=== PATIENT | male | born 1950 | race Caucasian/White ===

== ENCOUNTER 2018-04-15 10:54 | Emergency (ER) | payer MEDICARE, BC ==
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
--- NOTE | 2018-04-15 12:01 | RADIOLOGY REPORT (SQ) ---
EXAM DESCRIPTION: CT HEAD WITHOUT COMPLETED DATE/TIME: 04/15/2018 11:49 am REASON FOR STUDY: concern for cva COMPARISON: None. TECHNIQUE: Axial images acquired through the brain without intravenous contrast. Images reviewed wi th bone, brain and subdural windows. Images stored on PACS. All CT scanners at this facility use dose modulation, iterative reconstruction, and/or weight based d osing when appropriate to reduce radiation dose to as low as reasonably achievable (ALARA). [facility]: Dose Right [facility]: CareDose [facility]: Dose Right [facility]: Teradose 4D [facility]: [employer] RADIATION DOSE: CT Rad equipment meets quality standard of care and radiation dose reduction techniq ues were employed. CTDIvol: 53.2 mGy. DLP: 1070 mGy-cm. mGy. LIMITATIONS: None. FINDINGS: VENTRICLES: Normal size and contour. CEREBRUM: No masses. No hemorrhage. No midline shift. Old lacunar infarct right basal ganglion reg ion. Confluent areas of decreased attenuation within subcortical and periventricular white matter co mpatible with chronic white matter change. CEREBELLUM: No masses. No hemorrhage. No alteration of density. No evidence for acute infarction. EXTRAAXIAL SPACES: No fluid collections. No masses. ORBITS AND GLOBE: No intra- or extraconal masses. Normal contour of globe without masses. CALVARIUM: No fracture. PARANASAL SINUSES: Mucosal thickening within ethmoid and sphenoid sinuses consistent with chronic sin usitis. SOFT TISSUES: No mass or hematoma. OTHER: No other significant finding. IMPRESSION: CHRONIC ETHMOID AND SPHENOID SINUSITIS. CHANGES COMPATIBLE WITH CHRONIC WHITE MATTER CH SILVA AND OLD LACUNAR INFARCT RIGHT BASAL GANGLION REGION. EVIDENCE OF ACUTE STROKE: NO. COMMENT: Quality ID # [id number]: Final reports with documentation of one or more dose reduction techniques (e.g., Automated exposure control, adjustment of the mA and/or kV according to patient size, use of iterative reconstruction technique) TECHNICAL DOCUMENTATION: JOB ID: [id number] 2010 [employer]- All Rights Reserved Reading location - IP/workstation name: [email or web address]
[2018-04-15 12:15] LABS: ABSOLUTE BASOPHILS # (AUTO) 0.1 10^3/uL (0.0-0.2); ABSOLUTE EOSINOPHILS # (AUTO) 0.1 10^3/uL (0.0-0.6); ABSOLUTE LYMPHOCYTES (AUTO) 2.6 10^3/uL (0.5-4.7); ABSOLUTE MONOCYTES (AUTO) 0.8 10^3/uL (0.1-1.4); ABSOLUTE NEUT (AUTO) 5.3 10^3/uL (1.7-8.2); BASOPHILS % (AUTO) 1.1 % (0-2); EOSINOPHILS % (AUTO) 1.5 % (0-6); HEMATOCRIT 44.2 % (37.9-51.0); HEMOGLOBIN 15.7 g/dL (13.5-17.0); LYMPHOCYTES % (AUTO) 28.9 % (13-45); MEAN CORPUSCULAR HEMOGLOBIN 31.4 pg (27.0-33.4); MEAN CORPUSCULAR HGB CONC 35.5 g/dL (32.0-36.0); MEAN CORPUSCULAR VOLUME 89 fl (80-97); MONOCYTES % (AUTO) 9.3 % (3-13); PLATELET COUNT 214 10^3/uL (150-450); RED BLOOD COUNT 4.99 10^6/uL (4.35-5.55); RED CELL DISTRIBUTION WIDTH 13.5 % (11.5-14.0); SEGMENTED NEUTROPHILS % (AUTO) 59.2 % (42-78); TOTAL CELLS COUNTED % (AUTO) 100 %; WHITE BLOOD COUNT 8.9 10^3/uL (4.0-10.5)
--- NOTE | 2018-04-15 12:15 | RADIOLOGY REPORT (SQ) ---
EXAM DESCRIPTION: CHEST SINGLE VIEW COMPLETED DATE/TIME: 04/15/2018 11:50 am REASON FOR STUDY: concern for cva COMPARISON: None. EXAM PARAMETERS: NUMBER OF VIEWS: One view. TECHNIQUE: Single frontal radiographic view of the chest acquired. RADIATION DOSE: NA LIMITATIONS: None. FINDINGS: LUNGS AND PLEURA: No acute infiltrates or effusions. MEDIASTINUM AND HILAR STRUCTURES: No masses. Contour normal. HEART AND VASCULAR STRUCTURES: The heart is normal with atherosclerotic uncoiling and dilatation of t he thoracic aorta BONES: No acute findings. HARDWARE: None in the chest. OTHER: No other significant finding. IMPRESSION: NO ACUTE DISEASE. TECHNICAL DOCUMENTATION: JOB ID: [id number] 2010 [email or web address]- All Rights Reserved Reading location - IP/workstation name: [email or web address]
[2018-04-15 12:20] LABS: INTERNATIONAL RATION (INR) 1.41
[2018-04-15 12:21] LABS: PARTIAL THROMBOPLASTIN TIME 42.2 SEC (23.5-35.8)
[2018-04-15 12:24] LABS: APPEARANCE,URINE CLEAR; BILIRUBIN,URINE NEGATIVE (NEGATIVE); COLOR,URINE STRAW; GLUCOSE, URINE NEGATIVE (NEGATIVE); KETONES,URINE NEGATIVE (NEGATIVE); LEUKOCYTE ESTERASE,URINE SMALL (NEGATIVE); NITRITE,URINE NEGATIVE (NEGATIVE); PROTEIN,URINE NEGATIVE (NEGATIVE); URINE SPECIFIC GRAVITY 1.003; UROBILINOGEN,URINE NEGATIVE mg/dL (<2.0)
[2018-04-15 12:34] LABS: VENOUS BLOOD BASE EXCESS 2.9 mmol/L; VENOUS BLOOD HCO3 28.7 mmol/L (20-32); VENOUS BLOOD PCO2 48.3 mmHg (35-63); VENOUS BLOOD PH 7.39 (7.30-7.42)
[2018-04-15 12:38] LABS: ALANINE AMINOTRANSFERASE 21 U/L (21-72); ALKALINE PHOSPHATASE 57 U/L (38-126); ANION GAP 8 (5-19); ASPARTATE AMINO TRANSFERASE 15 U/L (17-59); BILIRUBIN,DIRECT 0.2 mg/dL (0.0-0.4); BILIRUBIN,TOTAL 0.8 mg/dL (0.2-1.3); BLOOD UREA NITROGEN 16 mg/dL (7-20); CALCIUM 9.3 mg/dL (8.4-10.2); CARBON DIOXIDE 31 mmol/L (22-30); CHLORIDE 102 mmol/L (98-107); CREATINE KINASE 35 U/L (55-170); GLUCOSE 185 mg/dL (75-110); POTASSIUM 3.9 mmol/L (3.6-5.0); SODIUM 141.3 mmol/L (137-145); TOTAL PROTEIN 7.2 g/dL (6.3-8.2)
--- NOTE | 2018-04-15 12:39 | EKG REPORT ---
SEVERITY:- ABNORMAL ECG - SINUS RHYTHM LEFT ANTERIOR FASCICULAR BLOCK : Confirmed by: Frida eSthi MD 15-Apr-2018 12:38:42
[2018-04-15 12:50] LABS: CREATINE KINASE MB 0.34 ng/mL (<4.55); TROPONIN I < 0.012 ng/mL
[2018-04-15 14:21] VITALS: BP 143/90
== END 2018-04-15 14:21 | disposition home or self-care (01) ==
LOC: ER 10:54
DX: J32.9 Chronic sinusitis, unspecified (principal); R26.9 Unspecified abnormalities of gait and mobility; G56.02 Carpal tunnel syndrome, left upper limb; R20.0 Anesthesia of skin; E11.9 Type 2 diabetes mellitus without complications; I10 Essential (primary) hypertension; E78.5 Hyperlipidemia, unspecified; F17.210 Nicotine dependence, cigarettes, uncomplicated
CPT/HCPCS: 36415; 70450; 71045; 80053; 81001; 82550; 82553; 82803; 84484; 85025; 85610; 85730; 93005; 93010; 99285

== ENCOUNTER → 2018-07-13 | Outpatient (CLI) | payer MEDICARE, BC ==
--- NOTE | 2018-07-13 13:19 | RADIOLOGY REPORT (SQ) ---
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 Images stored on PACS. LIMITATIONS: None. FINDINGS: RIGHT CAROTID CCA Velocities: Within normal limits. Right common carotid artery peak systolic velocity 0.95 m/sec ICA Velocities Peak systolic 0.87 m/s. End diastolic 0.14 m/s. Proximal ICA/CCA peak systolic ratio 1.0. Spectra normal. No significant plaque. LEFT CAROTID CCA Velocities: Left common carotid artery peak systolic velocity 1.7 m/sec ICA Velocities Peak systolic 0.67 m/s. End diastolic is 0.19 m/s. Proximal ICA/CCA peak systolic ratio is 0.8. Spectra normal. No significant plaque. VERTEBRAL ARTERIES: Antegrade flow. Normal waveforms. SUBCLAVIAN ARTERIES: Not evaluated OTHER: No other significant finding. IMPRESSION: NO HEMODYNAMICALLY SIGNIFICANT STENOSIS. COMMENT: Quality ID #[id number]: Velocity criteria are extrapolated from the diameter data as defined by t he Society of Radiologists in Ultrasound Consensus Conference. Radiology 2003: 229; 340-346. TECHNICAL DOCUMENTATION: JOB ID: [id number] [employer]- All Rights Reserved Reading location - IP/workstation name: [email or web address]
== END ==
LOC: SP 10:23
PROVIDERS: ATTEND Obstetrics & Gynecology
DX: E78.5 Hyperlipidemia, unspecified (principal); I10 Essential (primary) hypertension; E11.9 Type 2 diabetes mellitus without complications; Z86.73 Personal history of transient ischemic attack (TIA), and cerebral infarction without residual deficits
CPT/HCPCS: 93880

== ENCOUNTER 2018-12-01 09:03 | Emergency (ER) | payer MEDICARE, BC ==
[2018-12-01] MEDS ORDERED: CEFTRIAXONE 1 GM/D5W RTU 1 GM/50 ML RTUPB IV ONE (09:34)
[2018-12-01] MEDS ORDERED: ONDANSETRON HCL INJ/PF 4 MG/2 ML SDV IV ONE (09:35)
[2018-12-01] MEDS ORDERED: MORPHINE SULFATE 10 MG/ML INJ IV ONE ×2 (09:35→13:27)
[2018-12-01 09:39] LABS: HEMATOCRIT 43.3 % (37.9-51.0); HEMOGLOBIN 14.5 g/dL (13.5-17.0); MEAN CORPUSCULAR HEMOGLOBIN 29.9 pg (27.0-33.4); MEAN CORPUSCULAR HGB CONC 33.6 g/dL (32.0-36.0); MEAN CORPUSCULAR VOLUME 89 fl (80-97); PLATELET COUNT 222 10^3/uL (150-450); RED BLOOD COUNT 4.87 10^6/uL (4.35-5.55); RED CELL DISTRIBUTION WIDTH 14.7 % (11.5-14.0); WHITE BLOOD COUNT 12.4 10^3/uL (4.0-10.5)
--- NOTE | 2018-12-01 09:39 | ER Document Report ---
ED GI/ - General Chief Complaint: Possible Kidney Stone Stated Complaint: BACK PAIN,FEVER Time Seen by Provider: 12/01/18 09:14 Primary Care Provider: JIGNESH STEVENS MD [Primary Care Provider] - Follow up as needed Information source: Patient Notes: HPI: Patient is a 68-year-old male with past medical history including diabetes, high blood pressure, early Parkinson's disease, diagnosed with a right-sided large kidney stone around 1 cm in diameter in September in [place]. Patient is followed by the local urologist Dr. Jesus. He has surgery scheduled for December. Patient states he has had some increased right flank pain for the last 3 days with a temperature of 101. Nausea without vomiting. No dysuria. No radiation to the abdomen. No runny nose, congestion, sore throat, cough, headache, neck pain, rash, diarrhea, or other source of infection. ROS: See HPI All other review of systems reviewed and otherwise negative Reviewed vital signs and nursing note as charted by RN. PHYSICAL EXAM: CONSTITUTIONAL: She does appear to be in pain HEAD: Normocephalic; atraumatic EYES: Sclerae non-icteric ENT: Normal nose; no rhinorrhea; moist mucous membranes; pharynx without lesions noted NECK: Supple without meningismus; non-tender; no cervical lymphadenopathy, no masses CARD: Tachy but regular; no murmurs; symmetric distal pulses RESP: Normal chest excursion without splinting or tachypnea; breath sounds clear and equal bilaterally; no wheezes, no rhonchi, no rales ABD/GI: Normal bowel sounds; elevated BMI; soft, non-tender to palpation of all four quadrants of the abdomen; no palpable organomegaly or masses BACK: Right flank pain with no swelling or erythema. No midline ttp, swelling or erythema EXT: Normal ROM in all joints; non-tender to palpation; no edema SKIN: No acute lesions noted NEURO: CN 2-12 intact; 5/5 bilateral upper and lower extremity strength with sensation intact to light touch PSYCH: The patient's mood and manner are appropriate. Grooming and personal hygiene are appropriate. TRAVEL OUTSIDE OF THE [place] IN LAST 30 DAYS: No - Related Data Allergies/Adverse Reactions: aspirin Allergy (Verified 04/15/18 10:55) Past Medical History - Social History Smoking Status: Unknown if Ever Smoked Family History: Reviewed & Not Pertinent - Past Medical History Cardiac Medical History: Reports: Hx Hypertension Endocrine Medical History: Reports: Hx Diabetes Mellitus Type 2 Renal/ Medical History: Denies: Hx Peritoneal Dialysis Past Surgical History: Reports: Hx Appendectomy Physical Exam - Vital signs Vitals: Temp Pulse Resp BP Pulse Ox 99.7 F 123 H 24 H 148/86 H 95 12/01/18 09:17 12/01/18 09:17 12/01/18 09:17 12/01/18 09:17 12/01/18 09:17 Course - Re-evaluation Re-evalutation: 12/01/18 09:38 Given the above history and physical examination, we will obtain a renal colic CT scan, basic labs, blood cultures, lactic acid level, provide pain medications, fluids, and broad-spectrum coverage for possible infected kidney stone with Rocephin. Concern about sepsis. I will provide ideal body weight 2 L of fluid initially per septic protocol. 12/01/18 11:13 White blood cell count, CT scan renal colic protocol, and urine analysis as recorded. Rocephin and fluids have been provided. Normal lactic acid. I have called the transfer center with the patient's urologist Dr. Jesus currently works. I do believe transfer and extraction are indicated. 12/01/18 12:09 I did speak to Dr. Jesus who is very pleasant and did view the images himself. He does believe that the patient most likely needs a percutaneous drain. He will see if the hospitalist is able and willing to admit this patient. Transfer has been initiated. - Vital Signs Vital signs: Temp Pulse Resp BP Pulse Ox 98.2 F 123 H 22 H 137/87 H 95 12/01/18 15:31 12/01/18 09:17 12/01/18 15:31 12/01/18 15:31 12/01/18 15:31 - Laboratory Result Diagrams: 12/01/18 09:20 12/01/18 09:20 Laboratory results interpreted by me: 12/01/18 12/01/18 12/01/18 09:20 09:20 09:27 WBC 12.4 H RDW 14.7 H Seg Neuts % (Manual) 86 H Band Neutrophils % 2 L Lymphocytes % (Manual) 6 L Abs Neuts (Manual) 10.9 H PT 17.5 H Carbon Dioxide 20 L BUN 22 H Creatinine 1.33 H Est GFR (MDRD) Non-Af 53 L Glucose 251 H Urine Protein Urine Glucose (UA) Urine Ketones Urine Blood Urine Urobilinogen Ur Leukocyte Esterase Urine Ascorbic Acid 12/01/18 10:45 WBC RDW Seg Neuts % (Manual) Band Neutrophils % Lymphocytes % (Manual) Abs Neuts (Manual) PT Carbon Dioxide BUN Creatinine Est GFR (MDRD) Non-Af Glucose Urine Protein 100 H Urine Glucose (UA) 150 H Urine Ketones TRACE H Urine Blood SMALL H Urine Urobilinogen 2.0 H Ur Leukocyte Esterase SMALL H Urine Ascorbic Acid 40 H Critical Care Note - Critical Care Note Total time excluding time spent on procedures (mins): 35 Discharge - Discharge Clinical Impression: Infection, kidney, Kidney stone on right side Condition: Stable Disposition: [facility] Referrals: JIGNESH STEVESN MD [Primary Care Provider] - Follow up as needed
[2018-12-01] MEDS: NORMAL SALINE 1000 ML 1,000 ML IV ONE ×2 (09:45→12:05)
[2018-12-01 09:48] LABS: ANION GAP 12 (5-19); BLOOD UREA NITROGEN 22 mg/dL (7-20); CALCIUM 8.7 mg/dL (8.4-10.2); CARBON DIOXIDE 20 mmol/L (22-30); CHLORIDE 106 mmol/L (98-107); GLUCOSE 251 mg/dL (75-110); POTASSIUM 3.9 mmol/L (3.6-5.0)
[2018-12-01 09:50] LABS: INTERNATIONAL RATION (INR) 1.43; PROTHROMBIN TIME 17.5 SEC (11.4-15.4)
[2018-12-01 09:51] LABS: PARTIAL THROMBOPLASTIN TIME 35.5 SEC (23.5-35.8)
[2018-12-01 10:01] LABS: ABSOLUTE LYMPHOCYTES# (MANUAL) 0.7 10^3/uL (0.5-4.7); ABSOLUTE MONOCYTES # (MANUAL) 0.6 10^3/uL (0.1-1.4); BAND NEUTROPHILS % (MANUAL) 2 % (3-5); BASOPHILS % (MANUAL) 0 % (0-2); EOSINOPHILS % (MANUAL) 1 % (0-6); LYMPHOCYTES % (MANUAL) 6 % (13-45); MONOCYTES % (MANUAL) 5 % (3-13); SEGMENTED NEUTROPHILS % (MAN) 86 % (42-78); TOTAL CELLS COUNTED 100
[2018-12-01 10:02] LABS: ANISOCYTOSIS SLIGHT; PLATELET COMMENT ADEQUATE; TEAR DROP CELLS SLIGHT
--- NOTE | 2018-12-01 10:56 | RADIOLOGY REPORT (SQ) ---
EXAM DESCRIPTION: CT ABD/PELVIS NO ORAL OR IV COMPLETED DATE/TIME: 12/01/2018 10:29 am REASON FOR STUDY: 20; right flank pain; renal colic protocol; large COMPARISON: None. TECHNIQUE: CT scan of the abdomen and pelvis performed without intravenous or oral contrast. Images reviewed with lung, soft tissue, and bone windows. Reconstructed coronal and sagittal MPR images revi ewed. All images stored on PACS. All CT scanners at this facility use dose modulation, iterative reconstruction, and/or weight based d osing when appropriate to reduce radiation dose to as low as reasonably achievable (ALARA). [facility]: Dose Right [facility]: CareDose [facility]: Dose Right [facility]: Teradose 4D [facility]: Smart Baxano RADIATION DOSE: CT Rad equipment meets quality standard of care and radiation dose reduction techniq ues were employed. CTDIvol: 23.3 mGy. DLP: 1339 mGy-cm.mGy. LIMITATIONS: None. FINDINGS: LOWER CHEST: No significant findings. No nodules or infiltrates. NON-CONTRASTED LIVER, SPLEEN, ADRENALS: Evaluation limited by lack of IV contrast. No identified sign ificant masses. PANCREAS: No masses. No peripancreatic inflammatory changes. GALLBLADDER: No identified stones by CT criteria. No inflammatory changes to suggest cholecystitis. RIGHT KIDNEY AND URETER: No suspicious masses. Assessment limited by lack of IV contrast. Numerous right-sided renal calculi with a 16.1 mm stone in the right renal pelvis. There is perinephric stran ding. Hounsfield units measure 327. No hydronephrosis or hydroureter. LEFT KIDNEY AND URETER: No suspicious masses. Assessment limited by lack of IV contrast. Nonobstruc ting left renal calculi. No hydronephrosis or hydroureter. Mild left perinephric stranding. AORTA AND RETROPERITONEUM: Small periaortic nodes. BOWEL AND PERITONEAL CAVITY: No obvious masses or inflammatory changes. No free fluid. Postsurgical changes in the epigastric region. APPENDIX: Surgically absent. PELVIS, BLADDER, AND ABDOMINAL WALL:Umbilical hernia containing omental fat and small bowel. No obst ruction. BONES: No significant findings. OTHER: No other significant finding. IMPRESSION: 1. Numerous bilateral renal calculi 0 with a 16.1 mm right renal pelvic and proximal ure teral stone. No current hydronephrosis but there is perinephric stranding. Hounsfield units measure 327. The other stones are nonobstructing. 2. Umbilical hernia containing omental fat and small bowel. No obstruction. COMMENT: Quality ID # 436: Final reports with documentation of one or more dose reduction techniques (e.g., Automated exposure control, adjustment of the mA and/or kV according to patient size, use of iterative reconstruction technique) TECHNICAL DOCUMENTATION: JOB ID: [id number] [employer]- All Rights Reserved Reading location - IP/workstation name: [email or web address]
[2018-12-01 11:06] LABS: APPEARANCE,URINE SLIGHTLY-CLOUDY; BILIRUBIN,URINE NEGATIVE (NEGATIVE); COLOR,URINE YELLOW; GLUCOSE, URINE 150 mg/dL (NEGATIVE); KETONES,URINE TRACE mg/dL (NEGATIVE); LEUKOCYTE ESTERASE,URINE SMALL (NEGATIVE); NITRITE,URINE NEGATIVE (NEGATIVE); PROTEIN,URINE 100 mg/dL (NEGATIVE); URINE SPECIFIC GRAVITY 1.026
[2018-12-01] MEDS ORDERED: NORMAL SALINE 1000 ML 2,000 ML IV PRN (11:59)
[2018-12-01 16:21] VITALS: BP 137/87
== END 2018-12-01 15:40 | disposition short-term general hospital (02) ==
LOC: ER 09:03
DX: N20.0 Calculus of kidney (principal); R10.9 Unspecified abdominal pain; R50.9 Fever, unspecified; R11.0 Nausea; R00.0 Tachycardia, unspecified; E11.9 Type 2 diabetes mellitus without complications; I10 Essential (primary) hypertension; G20 Parkinson's disease
CPT/HCPCS: 96376; 99291; 96361; 96375; 96365; 36415; 87040; 87086; 83605; 85025; 85610; 85730; 87077; 87088; 80048; 81001; 87186; 74176; J2270; J2405; J7030; J0696

== ENCOUNTER 2019-01-11 09:14 | Day surgery (SDC) | payer MEDICARE, BC ==
[~2019-01-11 09:14] MED LIST: CHONDR SU A NA/HYALUR INTRAOC KIT (SURGICARE) ONE; DORZOLAMIDE HCL 2%/TIMOLOL MALEAT 0.5% OPH SOLN 10 ML OS PRN; EPINEPHRINE INJ/PF 1 MG/1 ML AMPULE ONE; KETOROLAC TROMETHAMINE 0.45% 4 DROP/0.4 ML DROPERETTE OS PRN; LIDOCAINE 1%/PHENYLEPHRINE 1.5% 1 ML VIAL ONE
[2019-01-11] MEDS: TROPICAMIDE 1% OPH SOLN 15 ML OS PRN ×3 (10:40→10:58)
[2019-01-11] MEDS: TETRACAINE HCL 0.5% OPH SOLN 4 ML OS PRN ×3 (10:40→11:00)
[2019-01-11] MEDS: CYCLOPENTOLATE 0.2%/PHENYLEPHRINE 1% OPH SOLN 2 ML OS PRN ×3 (10:41→10:58)
[2019-01-11] MEDS: BESIFLOXACIN HCL 0.6% OPH SUSP 5 ML BOTTLE OS PRN ×3 (10:41→11:28)
[2019-01-11] MEDS ORDERED: MIDAZOLAM 2 MG/2 ML INJ ONE (10:50)
[2019-01-11] MEDS ORDERED: FENTANYL CITRATE INJ/PF 100 MCG/2 ML AMPUL ONE (10:50)
--- NOTE | 2019-01-11 13:57 | Operative Report ---
[facility] Oper[facility] Report: DATE OF SURGERY: [01/11/2019] PREOPERATIVE DIAGNOSIS: Cataract, left eye, Pupil Miosis POSTOPERATIVE DIAGNOSIS: Cataract, left eye, Pupil miosis OPERATION: Complex Cataract extraction with insertion of a toric IOL of the left eye and use of a maluygan ring due to pupil dilation of less than 4mm. Intraocular Lens Model: [18.0 sn6at6 at 172 degrees] reason for surgery was difficulty seeing small print SURGEON: Jan Koch MD ANESTHESIA: Topical PROCEDURE: After obtaining appropriate consent, the patient's left eye was prepped and draped in a sterile fashion as well as the surgeon in the sterile manner and cataract surgery was started. First a paracentesis blade was used to make a side-port incision. Viscoelastic was used to inflate the anterior chamber. Next a 2.4 mm incision was made with a 2.4 mm blade, clear corneal temporarily. A continuous capsulorrhexis was made using a cystotome and Utrata forceps. Following this hydrodissection was carried out to make the lens fully loose and mobile and it was rotated freely. Following this, a divide and conquer technique was used to phacoemulsify the lens.. The remaining cortex was removed with an irrigation/aspiration. Provisc was instilled into the capsular bag to inflate the bag. The intraocular lens was placed. The remaining viscoelastic material was removed with irrigation/aspiration. Following this, the incision was found to be watertight. Prior to making the capsulorhexis a maluygan ring was inserted due to poor pupillary dilation. This was removed at the end of the case. Besivance and Cosopt was instilled into the eye and a protective shield was placed over the eye. The patient was returned to the postoperative recovery in a stable condition.
== END 2019-01-11 12:20 | disposition home or self-care (01) ==
LOC: SC 09:14
PROVIDERS: ATTEND Internal Medicine
DX: H25.813 Combined forms of age-related cataract, bilateral (principal); H57.03 Miosis; E11.9 Type 2 diabetes mellitus without complications; I10 Essential (primary) hypertension; G20 Parkinson's disease; Z86.73 Personal history of transient ischemic attack (TIA), and cerebral infarction without residual deficits; Z87.891 Personal history of nicotine dependence; Z79.899 Other long term (current) drug therapy; Z79.84 Long term (current) use of oral hypoglycemic drugs; Z79.01 Long term (current) use of anticoagulants; Z86.718 Personal history of other venous thrombosis and embolism
CPT/HCPCS: 66982; 82962; 00142; V2787; J2250; J3490 ×2; J0171; J3010; J2370; 142

== ENCOUNTER 2019-01-25 07:27 | Day surgery (SDC) | payer MEDICARE, BC ==
[~2019-01-25 07:27] MED LIST changes: -CHONDR SU A NA/HYALUR INTRAOC KIT (SURGICARE) ONE; -DORZOLAMIDE HCL 2%/TIMOLOL MALEAT 0.5% OPH SOLN 10 ML OS PRN; -EPINEPHRINE INJ/PF 1 MG/1 ML AMPULE ONE; -KETOROLAC TROMETHAMINE 0.45% 4 DROP/0.4 ML DROPERETTE OS PRN; -LIDOCAINE 1%/PHENYLEPHRINE 1.5% 1 ML VIAL ONE; +MIDAZOLAM 2 MG/2 ML INJ ONE
[2019-01-25] MEDS: TROPICAMIDE 1% OPH SOLN 15 ML OD PRN ×3 (08:01→08:25)
[2019-01-25] MEDS: TETRACAINE HCL 0.5% OPH SOLN 4 ML ONE ×4 (08:01→08:31)
[2019-01-25] MEDS: CYCLOPENTOLATE 0.2%/PHENYLEPHRINE 1% OPH SOLN 2 ML OD PRN ×3 (08:02→08:25)
[2019-01-25] MEDS: BESIFLOXACIN HCL 0.6% OPH SUSP 5 ML BOTTLE OD PRN ×4 (08:02→08:57)
[2019-01-25] MEDS ORDERED: ONDANSETRON HCL INJ/PF 4 MG/2 ML SDV ONE (08:15)
[2019-01-25] MEDS ORDERED: FENTANYL CITRATE INJ/PF 100 MCG/2 ML AMPUL ONE (08:15)
[2019-01-25] MEDS: LIDOCAINE 1%/PHENYLEPHRINE 1.5% 1 ML VIAL ONE ×2 (08:44)
[2019-01-25] MEDS: EPINEPHRINE INJ/PF 1 MG/1 ML AMPULE ONE ×2 (08:44)
[2019-01-25] MEDS: CHONDR SU A NA/HYALUR INTRAOC KIT (SURGICARE) ONE ×2 (08:44)
[2019-01-25] MEDS ORDERED: MIDAZOLAM 2 MG/2 ML INJ ONE (08:46)
[2019-01-25] MEDS: DORZOLAMIDE HCL 2%/TIMOLOL MALEAT 0.5% OPH SOLN 10 ML OD PRN ×2 (08:57)
--- NOTE | 2019-01-25 13:55 | Operative Report ---
Operative Report-[facility] Operative Report: DATE OF SURGERY: [01/25/19] PREOPERATIVE DIAGNOSIS: Cataract, right eye POSTOPERATIVE DIAGNOSIS: Cataract, right eye OPERATION: Cataract extraction with insertion of an toric IOL of the right eye. Intraocular Lens Model: [17.5 sn6at5 at 172] reason for surgery was difficulty driving at night secondary to glare from headlights SURGEON: Jan Koch MD ANESTHESIA: Topical PROCEDURE: After obtaining appropriate consent, the patient's right eye was prepped and draped in a sterile fashion as well as the surgeon in the sterile manner and cataract surgery was started. First a paracentesis blade was used to make a side-port incision. Viscoelastic was used to inflate the anterior chamber. Next a 2.4 mm incision was made with a 2.4 mm blade, clear corneal temporarily. A continuous capsulorrhexis was made using a cystotome and Utrata forceps. Following this hydrodissection was carried out to make the criselda fully loose and mobile and it was rotated. Following this, a divide and conquer technique was used to phacoemulsify the criselda. The remaining cortex was removed with an irrigation/aspiration. Provisc was instilled into the capsular bag to inflate the bag. The intraocular lens was placed. The remaining viscoelastic material was removed with irrigation/aspiration. Following this, the incision wa s found to be watertight. Besivance and Cosopt was instilled into the eye and a protective shield was placed over the eye. The patient was returned to the postoperative recovery in a stable condition.
[2019-01-26] MEDS ORDERED: TETRACAINE HCL 0.5% OPH SOLN 0.6 ML DROPERETTE OD PRN (05:00)
== END 2019-01-25 09:46 | disposition home or self-care (01) ==
LOC: SC 07:27
PROVIDERS: ATTEND Internal Medicine
DX: H25.811 Combined forms of age-related cataract, right eye (principal); Z96.1 Presence of intraocular lens; H04.122 Dry eye syndrome of left lacrimal gland; Z79.01 Long term (current) use of anticoagulants; I10 Essential (primary) hypertension; E11.9 Type 2 diabetes mellitus without complications; Z86.73 Personal history of transient ischemic attack (TIA), and cerebral infarction without residual deficits
CPT/HCPCS: 82962; 00142; 66984; V2787; J2250; J3490 ×2; J0171; J3010; J2405; J2370; 142

== ENCOUNTER → 2019-08-15 | Outpatient (CLI) | payer MEDICARE, BC ==
--- NOTE | 2019-08-15 19:53 | EKG REPORT ---
SEVERITY:- ABNORMAL ECG - SINUS RHYTHM LEFT ANTERIOR FASCICULAR BLOCK : Confirmed by: Avtar Duenas MD 15-Aug-2019 19:53:06
== END ==
LOC: OD 14:08
PROVIDERS: ATTEND Obstetrics & Gynecology
DX: I10 Essential (primary) hypertension (principal); I82.409 Acute embolism and thrombosis of unspecified deep veins of unspecified lower extremity; Z79.899 Other long term (current) drug therapy
CPT/HCPCS: 93005; 93010

== ENCOUNTER 2019-09-20 15:58 | Emergency (ER) | payer MEDICARE, BC ==
--- NOTE | 2019-09-20 16:11 | ER Document Report ---
ED Medical Screen (RME) - General Chief Complaint: S/S of Possible Stroke Stated Complaint: POSSIBLE STROKE Time Seen by Provider: 09/20/19 16:03 Primary Care Provider: JIGNESH STEVENS MD [Primary Care Provider] - Follow up as needed Mode of Arrival: Wheelchair Information source: Patient Notes: 68-year-old male presented to ED for complaint of possible stroke symptoms. He has no facial droop. No palmar drift palm, and states he will not answer any questions until his comes back from the car. He is alert and oriented at this time but refuses to answer any questions without his . When came in patient was answering some questions he does have some confusion. He does have a history of a previous stroke and some brain hearing issues. She states t hat this morning he took a walk around the neighborhood barefooted in his underwear and she was able to see this on the dog camera. She states he has been confused for the last 5 days. She states she called Dr. Wyatt and he told her to bring him into the emergency room after going out in the neighborhood with no clothes on. He does have a history of venous insufficiency in the left lower leg. He also has history of DVTs and is a said stroke. states he had abnormal EKG 10 days ago and they are waiting for a cardiology referral. I have greeted and performed a rapid initial assessment of this patient. A comprehensive ED assessment and evaluation of the patient, analysis of test results and completion of medical decision making process will be conducted by an additional ED providers. TRAVEL OUTSIDE OF THE [place] IN LAST 30 DAYS: No - Related Data Allergies/Adverse Reactions: aspirin Allergy (Verified 01/08/19 14:16) SWELLS THROAT Past Medical History - Past Medical History Cardiac Medical History: Reports: Hx Hypertension Denies: Hx Heart Attack Pulmonary Medical History: Denies: Hx Asthma Neurological Medical History: Denies: Hx Cerebrovascular Accident, Hx Seizures Endocrine Medical History: Reports: Hx Diabetes Mellitus Type 2 Renal/ Medical History: Reports: Hx Kidney Stones. Denies: Hx Peritoneal Dialysis GI Medical History: Denies: Hx Hepatitis, Hx Hiatal Hernia, Hx Ulcer Infectious Medical History: Denies: Hx Hepatitis Past Surgical History: Reports: Hx Appendectomy. Denies: Hx Open Heart Surgery, Hx Pacemaker Doctor's Discharge - Discharge Referrals: JIGNESH STEVENS MD [Primary Care Provider] - Follow up as needed
--- NOTE | 2019-09-20 16:41 | RADIOLOGY REPORT (SQ) ---
EXAM DESCRIPTION: CHEST 2 VIEWS IMAGES COMPLETED DATE/TIME: 09/20/2019 4:22 pm REASON FOR STUDY: Pedal edema history of recent abnormal EKG COMPARISON: 04/15/2018 EXAM PARAMETERS: NUMBER OF VIEWS: two views TECHNIQUE: Digital Frontal and Lateral radiographic views of the chest acquired. RADIATION DOSE: NA LIMITATIONS: none FINDINGS: LUNGS AND PLEURA: No opacities, masses or pneumothorax. No pleural effusion. MEDIASTINUM AND HILAR STRUCTURES: No masses or contour abnormalities. HEART AND VASCULAR STRUCTURES: Heart normal size. No evidence for failure. BONES: No acute findings. HARDWARE: None in the chest. OTHER: No other significant finding. IMPRESSION: NO ACUTE RADIOGRAPHIC FINDING IN THE CHEST. TECHNICAL DOCUMENTATION: JOB ID: [id number] 2010 [employer]- All Rights Reserved Reading location - IP/workstation name: [email or web address]
[2019-09-20 16:59] LABS: ABSOLUTE BASOPHILS # (AUTO) 0.2 10^3/uL (0.0-0.2); ABSOLUTE EOSINOPHILS # (AUTO) 0.1 10^3/uL (0.0-0.6); ABSOLUTE LYMPHOCYTES (AUTO) 2.9 10^3/uL (0.5-4.7); ABSOLUTE MONOCYTES (AUTO) 0.7 10^3/uL (0.1-1.4); ABSOLUTE NEUT (AUTO) 7.1 10^3/uL (1.7-8.2); BASOPHILS % (AUTO) 1.5 % (0-2); EOSINOPHILS % (AUTO) 1.2 % (0-6); HEMATOCRIT 34.8 % (37.9-51.0); LYMPHOCYTES % (AUTO) 26.2 % (13-45); MEAN CORPUSCULAR HEMOGLOBIN 23.3 pg (27.0-33.4); MEAN CORPUSCULAR HGB CONC 31.6 g/dL (32.0-36.0); MEAN CORPUSCULAR VOLUME 74 fl (80-97); MONOCYTES % (AUTO) 6.6 % (3-13); PLATELET COUNT 352 10^3/uL (150-450); RED BLOOD COUNT 4.73 10^6/uL (4.35-5.55); RED CELL DISTRIBUTION WIDTH 18.1 % (11.5-14.0); SEGMENTED NEUTROPHILS % (AUTO) 64.5 % (42-78); TOTAL CELLS COUNTED % (AUTO) 100 %
--- NOTE | 2019-09-20 17:03 | RADIOLOGY REPORT (SQ) ---
EXAM DESCRIPTION: CT HEAD WITHOUT IMAGES COMPLETED DATE/TIME: 09/20/2019 4:30 pm REASON FOR STUDY: Altered mental status with previous stroke COMPARISON: 04/15/2018 TECHNIQUE: Axial images acquired through the brain without intravenous contrast. Images reviewed wi th bone, brain and subdural windows. Additional sagittal and coronal reconstructions were generated. Images stored on PACS. All CT scanners at this facility use dose modulation, iterative reconstruction, and/or weight based d osing when appropriate to reduce radiation dose to as low as reasonably achievable (ALARA). [facility]: Dose Right [facility]: CareDose [facility]: Dose Right [facility]: Teradose 4D [facility]: Smart [employer] RADIATION DOSE: CT Rad equipment meets quality standard of care and radiation dose reduction techniq ues were employed. CTDIvol: 48.8 mGy. DLP: 1030 mGy-cm. mGy. LIMITATIONS: None. FINDINGS: VENTRICLES: Normal size and contour. CEREBRUM: No masses. No hemorrhage. No midline shift. Old lacunar infarction in the right basal ga nglia. No evidence for acute infarction. Areas of low density in the white matter most likely chroni c small vessel ischemic changes. CEREBELLUM: No masses. No hemorrhage. No alteration of density. No evidence for acute infarction. EXTRAAXIAL SPACES: No fluid collections. No masses. ORBITS AND GLOBE: No intra- or extraconal masses. Normal contour of globe without masses. CALVARIUM: No fracture. PARANASAL SINUSES: No fluid or mucosal thickening. SOFT TISSUES: No mass or hematoma. OTHER: No other significant finding. IMPRESSION: Chronic microvascular ischemia with an old lacunar infarction on the right. No acute in tracranial imaging finding. EVIDENCE OF ACUTE STROKE: NO. COMMENT: Pertinent positive or negative findings of the imaging study reported as a CRITICAL EXAM soraya CHAMPION NP at16:57 on 09/20/2019. Category of Critical Exam: Code stroke Quality ID # 436: Final reports with documentation of one or more dose reduction techniques (e.g., Au tomated exposure control, adjustment of the mA and/or kV according to patient size, use of iterative reconstruction technique) TECHNICAL DOCUMENTATION: JOB ID: [id number] 2010 [employer]- All Rights Reserved Reading location - IP/workstation name: [email or web address]
[2019-09-20 17:16] LABS: ALBUMIN 4.1 g/dL (3.5-5.0); ALKALINE PHOSPHATASE 47 U/L (38-126); ANION GAP 10 (5-19); ASPARTATE AMINO TRANSFERASE 20 U/L (17-59); BILIRUBIN,TOTAL 0.6 mg/dL (0.2-1.3); BLOOD UREA NITROGEN 21 mg/dL (7-20); CARBON DIOXIDE 24 mmol/L (22-30); CHLORIDE 107 mmol/L (98-107); GLUCOSE 112 mg/dL (75-110); POTASSIUM 4.3 mmol/L (3.6-5.0); TOTAL PROTEIN 7.6 g/dL (6.3-8.2)
--- NOTE | 2019-09-20 17:26 | EKG REPORT ---
SEVERITY:- ABNORMAL ECG - SINUS RHYTHM INCOMPLETE LEFT BUNDLE BRANCH BLOCK BORDERLINE R WAVE PROGRESSION, ANTERIOR LEADS : Confirmed by: Frida Sethi MD 20-Sep-2019 17:25:17
--- NOTE | 2019-09-20 18:41 | ER Document Report ---
ED General - General Chief Complaint: S/S of Possible Stroke Stated Complaint: POSSIBLE STROKE Time Seen by Provider: 09/20/19 16:03 Primary Care Provider: JIGNESH STEVENS MD [Primary Care Provider] - Follow up as needed Mode of Arrival: Wheelchair TRAVEL OUTSIDE OF THE [place] IN LAST 30 DAYS: No - HPI Notes: Patient is a 68-year-old male, accompanied by his , who presents to the emergency department for evaluation of altered mental status. Per family, he is an unknown brain disorder. It is been Parkinson-like, but neurology is convinced it is not Parkinson's. He has had difficulty walking, difficulty with gait, some intermittent confusion over the last several years. He has "white spots" on his brain, but no definitive diagnosis has been made. Evidently this week he has been exhibiting more strange behavior. He forgot how to turn on a w ater faucet. He placed clean clothes in the dryer, insisting they were wet. Today, while unsupervised at the house, he watered the garden and decided to go for a walk. His came home and found him barefoot, and his underwear only, walking on the street of his [place]sac with his walker. The patient states that today, he thought he was just wearing a swimming suit, and realizes it was a bad decision to walk in his barefoot condition, given the fact that he is a diabetic. He states on further comment, however, that he realized now that his other behaviors this week were strange and concerning. He has pain "all over" which she states is in all of his bones, and this is been ongoing as well. - Related Data Allergies/Adverse Reactions: aspirin Allergy (Verified 01/08/19 14:16) SWELLS THROAT Home Medications: Metformin, Oxycodone, Xarelto, Losartan, omeprazole Past Medical History - General Information source: Patient, Relative - Social History Smoking Status: Former Smoker Family History: Reviewed & Not Pertinent Patient has homicidal ideation: No - Past Medical History Cardiac Medical History: Reports: Hx Hypertension Denies: Hx Heart Attack Pulmonary Medical History: Denies: Hx Asthma Neurological Medical History: Reports: Other - Unknown neurological disorder, mentioned in HPI. Denies: Hx Cerebrovascular Accident, Hx Seizures Endocrine Medical History: Reports: Hx Diabetes Mellitus Type 2 Renal/ Medical History: Reports: Hx Kidney Stones. Denies: Hx Peritoneal Dialysis GI Medical History: Denies: Hx Hepatitis, Hx Hiatal Hernia, Hx Ulcer Infectious Medical History: Denies: Hx Hepatitis Past Surgical History: Reports: Hx Appendectomy - Ruptured, septic, Hx Gastric Bypass Surgery. Denies: Hx Open Heart Surgery, Hx Pacemaker Review of Systems - Review of Systems Musculoskeletal: See HPI Neurological/Psychological: See HPI -: Yes All other systems reviewed and negative Physical Exam - Vital signs Vitals: Temp Pulse Resp BP Pulse Ox 97.5 F 83 16 169/93 H 99 09/20/19 16:11 09/20/19 16:11 09/20/19 16:11 09/20/19 16:11 09/20/19 16:11 - Notes Notes: This is a very pleasant obese 68-year-old male who appears his stated age, no acute distress. Head is normocephalic and atraumatic, pupils are equal and round, reactive to light. Oral mucosa is moist. Uvula is midline. Neck is supple without meningismus. Heart is regular rate and rhythm, lungs are clear to auscultation bilaterally. Abdomen is obese, nontender, normoactive bowel sounds. Patient has extensive lymphedema test changes to the left lower extremity, will not allow this examiner to touch his lower extremity secondary to pain. He has some peripheral vascular disease changes noted to bilateral lo wer extremities, but skin is warm and dry. Patient is awake and alert. He is able to tell me we are in a city that ends in "available" but is otherwise unable to tell me the city. He recognizes he is in a hospital. He is able to tell me as September 2019, and recognizes his without difficulty. Patient is awake, alert, oriented x3. Cranial nerves II - XII are grossly intact without focal neurological deficits. Strength is plus 5 out of 5 upper extremities. Strength testing not performed on lower extremity secondary to patient request. Sensation is intact. Reflexes symmetrical. Intact [id number], rapid alternating movements, [id number]. Course - Re-evaluation Re-evalutation: 09/20/19 18:40 Patient presents to the emergency department for evaluation. He was first evaluated here as a stroke alert, had a noncontrast CT scan of the head which is read as negative. His laboratory investigations were ordered as well. Still awaiting urinalysis. The patient is not showing me any clear neurological de ficits at this time. My concern is that this is progression of a dementia, or related to his unknown neurological condition. We discussed an MRI, but the patient states he would be unable to lay down for that period of time. He does have a neurologist for follow-up, and believes that she can arrange this. We did talk at length, however, about the fact that I do not believe it is safe for the patient to be at home by himself at any time now. The patient was in agreement. He is stable, is attempting to provide urine sample at this time. We will continue to monitor. 09/20/19 19:53 Patient's urine shows large blood, likely secondary to his anticoagulation for DVT. No other overwhelming signs of infection are found. Urine is sent for culture. I strongly suspect progression of his neurological disease as the cause of this change in mental status. Patient and are amenable to waiting for the urine culture. Otherwise they are to follow-up with primary care and neurology tomorrow, return to the ED with worsening or new concerning symptoms of any sort. - Vital Signs Vital signs: Temp Pulse Resp BP Pulse Ox 97.5 F 83 19 173/92 H 99 09/20/19 16:12 09/20/19 16:11 09/20/19 18:01 09/20/19 18:01 09/20/19 18:01 - Laboratory Result Diagrams: 09/20/19 16:43 09/20/19 16:43 Laboratory results interpreted by me: 09/20/19 09/20/19 09/20/19 16:43 16:43 18:43 WBC 11.0 H Hgb 11.0 L Hct 34.8 L MCV 74 L MCH 23.3 L MCHC 31.6 L RDW 18.1 H BUN 21 H Glucose 112 H Urine Blood LARGE H Urine Urobilinogen 4.0 H Ur Leukocyte Esterase SMALL H - Diagnostic Test Radiology reviewed: Reports reviewed Radiology results interpreted by me: 09/20/19 18:41 Chest X-Ray 09/20/19 16:12 IMPRESSION: NO ACUTE RADIOGRAPHIC FINDING IN THE CHEST. Head CT 09/20/19 16:12 IMPRESSION: Chronic microvascular ischemia with an old lacunar infarction on the right. No acute intracranial imaging finding. EVIDENCE OF ACUTE STROKE: NO. - EKG Interpretation by Me Additional EKG results interpreted by me: 09/20/19 18:41 Sinus mechanism with a rate of 80 bpm. Left axis deviation. IVCD. Nonspecific ST changes, but no acute ST elevation concerning for infarction. No change when compared to prior study of August 15, 2019. Discharge - Discharge Clinical Impression: Microscopic hematuria Altered mental status Qualifiers: Altered mental status type: transient alteration of awareness Qualified Code( s): R40.4 - Transient alteration of awareness Condition: Stable Disposition: HOME, SELF-CARE Additional Instructions: No clear cause is identified today for the changes in your mental status. As discussed, an MRI may be useful. Please discuss this with your primary care provider and your neurologist. There was some microscopic blood in your urine today. This is been sent for culture. If any bacteria grow you will be contacted. Otherwise, follow-up with primary care and neurology next week. If you develop worsening or new concerning symptoms of any sort, please return immediately to the emergency department for reevaluation. Referrals: JIGNESH STEVENS MD [Primary Care Provider] - Follow up as needed
[2019-09-20 18:49] VITALS: BP 173/92
[2019-09-20 19:43] LABS: APPEARANCE,URINE CLEAR; BILIRUBIN,URINE NEGATIVE (NEGATIVE); COLOR,URINE YELLOW; GLUCOSE, URINE NEGATIVE (NEGATIVE); KETONES,URINE NEGATIVE (NEGATIVE); LEUKOCYTE ESTERASE,URINE SMALL (NEGATIVE); NITRITE,URINE NEGATIVE (NEGATIVE); PROTEIN,URINE NEGATIVE (NEGATIVE); URINE SPECIFIC GRAVITY 1.018
== END 2019-09-20 20:21 | disposition home or self-care (01) ==
LOC: ER 15:58
DX: E11.9 Type 2 diabetes mellitus without complications (principal); R31.29 Other microscopic hematuria; R26.2 Difficulty in walking, not elsewhere classified; M89.8X0 Other specified disorders of bone, multiple sites; E66.9 Obesity, unspecified; R41.0 Disorientation, unspecified; I45.9 Conduction disorder, unspecified; I89.0 Lymphedema, not elsewhere classified; I10 Essential (primary) hypertension; I82.409 Acute embolism and thrombosis of unspecified deep veins of unspecified lower extremity; Z79.01 Long term (current) use of anticoagulants; Z79.84 Long term (current) use of oral hypoglycemic drugs; Z79.891 Long term (current) use of opiate analgesic; Z79.899 Other long term (current) drug therapy; Z98.84 Bariatric surgery status; Z87.891 Personal history of nicotine dependence; Z86.73 Personal history of transient ischemic attack (TIA), and cerebral infarction without residual deficits
CPT/HCPCS: 36415; 70450; 71046; 80053; 81001; 84484; 85025; 87086; 87088; 87186; 93005; 93010; 99285

== ENCOUNTER 2019-10-21 09:47 | Emergency (ER) | payer MEDICARE, BC ==
--- NOTE | 2019-10-21 10:39 | ER Document Report ---
ED General - General Chief Complaint: Altered Mental Status Stated Complaint: CONFUSION/ALTERED Time Seen by Provider: 10/21/19 10:16 Primary Care Provider: JIGNESH STEVENS MD [Primary Care Provider] - Follow up as needed Notes: HPI: 69-year-old male who presents today with supposedly waking up this morning at 630 and confused per . Patient sleeps in the same room as his but sleeps in a chair next to the bed secondary to some chronic back pain that they believe is secondary to ankylosing spondylitis. Patient supposedly called his and texted on the cell phone despite that she was right next to him in the room. She states that he was confused. She states she do not see any facial drooping or slurred speech. She did not see any focal weakness. Patient supposedly has had no head trauma, nausea, vomiting, fevers, diarrhea, cough, shortness of breath, or complaints of pain. Patient initially was brought in prior to my arrival as a code stroke and taken immediately to CT scan. He refused to CT scan because he did not want to get out of the wheelchair. He was taken back to his room without a CT scan performed. Patient supposedly has had a history of a stroke found only incidentally on i maging. states that the patient sees a neurologist secondary to some early onset dementia/possibility of Parkinson's disease. Patient is supposedly on Xarelto secondary to a previous DVT 8 years ago. He has some chronic lower extremity lymphedema that has not increased in size or discoloration. Patient was last seen completely normal last evening. Patient does take pain medication secondary to his back but no increase or change in dosages for 2 to 3 months according to . ROS: See HPI All other review of systems reviewed and otherwise negative Reviewed vital signs and nursing note as charted by RN. PHYSICAL EXAM: CONSTITUTIONAL: Alert and oriented currently and responds appropriately to questions. Well-appearing; well-nourished HEAD: Normocephalic; atraumatic EYES: PERRL; full extraocular range of motion without nystagmus; conjunctivae clear, sclerae non-icteric ENT: Normal nose; no rhinorrhea; moist mucous membranes; pharynx without lesions noted NECK: Supple without meningismus; no carotid bruit; non-tender; no cervical lymphadenopathy, no masses CARD: Regular rate and rhythm; no murmurs; symmetric distal pulses RESP: Normal chest excursion without splinting or tachypnea; breath sounds clear and equal bilaterally; no wheezes, no rhonchi, no rales ABD/GI: Normal bowel sounds; non-distended; soft, non-tender; no palpable organomegaly or masses BACK: The back appears normal and is non-tender to palpation EXT: Normal ROM in all joints; non-tender to palpation; patient has some chronic woody appearing bilateral lymphedema to the lower extremities with no acute leg lesions present SKIN: No acute lesions noted NEURO: CN 2-12 intact; 5/5 bilateral upper and lower extremity strength with sensation intact to light touch; VAN score negative PSYCH: The patient's mood and manner are appropriate. Grooming and personal hygiene are appropriate. TRAVEL OUTSIDE OF THE [place] IN LAST 30 DAYS: No - Related Data Allergies/Adverse Reactions: aspirin Allergy (Verified 01/08/19 14:16) SWELLS THROAT Past Medical History - Social History Smoking Status: Unknown if Ever Smoked Family History: Reviewed & Not Pertinent - Past Medical History Cardiac Medical History: Reports: Hx Hypertension Denies: Hx Heart Attack Pulmonary Medical History: Denies: Hx Asthma Neurological Medical History: Denies: Hx Cerebrovascular Accident, Hx Seizures Endocrine Medical History: Reports: Hx Diabetes Mellitus Type 2 Renal/ Medical History: Reports: Hx Kidney Stones. Denies: Hx Peritoneal Dialysis GI Medical History: Denies: Hx Hepatitis, Hx Hiatal Hernia, Hx Ulcer Infectious Medical History: Denies: Hx Hepatitis Past Surgical History: Reports: Hx Appendectomy - Ruptured, septic, Hx Gastric Bypass Surgery. Denies: Hx Open Heart Surgery, Hx Pacemaker Physical Exam - Vital signs Vitals: Temp 97.9 F 10/21/19 09:48 Course - Re-evaluation Re-evalutation: Given the above history and physical we have convinced the patient to return to the CT scanner. Patient currently denies any pain and has no focal neurological deficits. He knows the year and the month. He has no drift or weakness to the extremities. Vital signs as recorded. Last known well last evening. VAN score is negative. Given the lack of any symptomatology with an NIH score currently of 0, with the onset of last known well last evening, with symptoms starting at 6:30 AM, on Xarelto, I do not believe that the patient is a TPA candidate. 10/21/19 11:04 EKG shows heart rate of 87, normal sinus rhythm, PACs present, left anterior fascicular block, poor R wave progression, inverted T waves in aVL. Compared to the EKG previously performed September 20, 2019, R wave progression in V2 has worsened 10/21/19 12:01 Imaging as recorded. Patient is in no acute distress. Still no focal neurological deficits. Awaiting urine analysis. 10/21/19 14:09 Still awaiting urinalysis. We have also ordered catheterization. Patient is sitting in a chair next to the bed. He states he would like to go home. His is at bedside. I have explained numerous times the risks of this decision is I am concerned that the patient has had a mini stroke. Patient is aware of t his and still would like to go home. Patient knows the year, president, day of the week, and that yesterday was his birthday. He understands the risks of going home including pulmonary disability and . His primary care physician is in the area but the office is closed on Tuesday. His understands the risks and is also comfortable with the patient going home. They understand that we are having him sign out AGAINST MEDICAL ADVICE and we believe that the patient may be an imminent concern of or permanent disability. - Vital Signs Vital signs: Temp Pulse Resp BP Pulse Ox 97.9 F 84 18 188/95 H 97 10/21/19 09:48 10/21/19 09:53 10/21/19 11:00 10/21/19 10:39 10/21/19 11:01 - Laboratory Result Diagrams: 10/21/19 11:00 10/21/19 11:00 Laboratory results interpreted by me: 10/21/19 10/21/19 10/21/19 10:14 11:00 11:00 Hgb 10.3 L Hct 33.5 L MCV 73 L MCH 22.5 L MCHC 30.7 L RDW 19.4 H PT Glucose 154 H POC Glucose 143 H AST 14 L Creatine Kinase 32 L 10/21/19 12:54 Hgb Hct MCV MCH MCHC RDW PT 19.4 H Glucose POC Glucose AST Creatine Kinase Discharge - Discharge Clinical Impression: Altered mental status Qualifiers: Altered mental status type: disorientation Qualified Code(s): R41.0 - Disorientation, unspecified Condition: Serious Disposition: AGAINST MEDICAL ADVICE Additional Instructions: Come back at any time that you both would like for further assessment and treatment. Return immediately for any worsening or continued confusion, fevers, vomiting, chest pain, diarrhea, weakness or numbness, or any other acute problems. Please make sure that you follow-up with your primary care physician regardless. Referrals: JIGNESH STEVENS MD [Primary Care Provider] - Follow up as needed
--- NOTE | 2019-10-21 10:50 | RADIOLOGY REPORT (SQ) ---
EXAM DESCRIPTION: CT HEAD WITHOUT IMAGES COMPLETED DATE/TIME: 10/21/2019 10:36 am REASON FOR STUDY: bed 9 stroke alert COMPARISON: 09/20/2019 TECHNIQUE: Axial images acquired through the brain without intravenous contrast. Images reviewed wit h bone, brain and subdural windows. Images stored on PACS. All CT scanners at this facility use dose modulation, iterative reconstruction, and/or weight based d osing when appropriate to reduce radiation dose to as low as reasonably achievable (ALARA). [facility]: Dose Right [facility]: CareDose [facility]: Dose Right [facility]: Teradose 4D [facility]: Smart Shnergle RADIATION DOSE: CT Rad equipment meets quality standard of care and radiation dose reduction techniq ues were employed. CTDIvol: 53.2 mGy. DLP: 1070 mGy-cm.. LIMITATIONS: None. FINDINGS: VENTRICLES: Normal size and contour. CEREBRUM: No masses. No hemorrhage. No midline shift. Stable appearance of the white matter with mod erate small vessel ischemic changes bilaterally. No evidence for acute infarction. CEREBELLUM: No masses. No hemorrhage. No alteration of density. No evidence for acute infarction. EXTRA-AXIAL SPACES: No fluid collections. ORBITS AND GLOBE: No intra- or extraconal masses. Normal contour of globe without masses. CALVARIUM: No fracture. PARANASAL SINUSES: No fluid or mucosal thickening. SOFT TISSUES: No mass or hematoma. OTHER: No other significant finding. IMPRESSION: NO ACUTE INTRACRANIAL FINDINGS. EVIDENCE OF ACUTE STROKE: NO. COMMENT: Results were called to Dr. Dickson at 1041 hours. Results were confirmed and read back. TECHNICAL DOCUMENTATION: JOB ID: [id number] [place]-[id number] Quality ID # [id number]: Final reports with documentation of one or more dose reduction techniques (e.g., Au tomated exposure control, adjustment of the mA and/or kV according to patient size, use of iterative reconstruction technique) 2010 [employer]- All Rights Reserved Reading location - IP/workstation name: [email or web address]
--- NOTE | 2019-10-21 11:10 | EKG REPORT ---
SEVERITY:- ABNORMAL ECG - SINUS RHYTHM ATRIAL PREMATURE COMPLEX LEFT ANTERIOR FASCICULAR BLOCK : Confirmed by: Avtar Duenas MD 21-Oct-2019 11:09:44
[2019-10-21 11:17] LABS: ABSOLUTE EOSINOPHILS # (AUTO) 0.1 10^3/uL (0.0-0.6); ABSOLUTE LYMPHOCYTES (AUTO) 2.5 10^3/uL (0.5-4.7); ABSOLUTE MONOCYTES (AUTO) 0.7 10^3/uL (0.1-1.4); ABSOLUTE NEUT (AUTO) 7.1 10^3/uL (1.7-8.2); BASOPHILS % (AUTO) 0.4 % (0-2); EOSINOPHILS % (AUTO) 0.8 % (0-6); HEMATOCRIT 33.5 % (37.9-51.0); HEMOGLOBIN 10.3 g/dL (13.5-17.0); LYMPHOCYTES % (AUTO) 24.1 % (13-45); MEAN CORPUSCULAR HEMOGLOBIN 22.5 pg (27.0-33.4); MEAN CORPUSCULAR HGB CONC 30.7 g/dL (32.0-36.0); MEAN CORPUSCULAR VOLUME 73 fl (80-97); MONOCYTES % (AUTO) 6.5 % (3-13); PLATELET COUNT 313 10^3/uL (150-450); RED BLOOD COUNT 4.58 10^6/uL (4.35-5.55); RED CELL DISTRIBUTION WIDTH 19.4 % (11.5-14.0); SEGMENTED NEUTROPHILS % (AUTO) 68.2 % (42-78); TOTAL CELLS COUNTED % (AUTO) 100 %; WHITE BLOOD COUNT 10.4 10^3/uL (4.0-10.5)
--- NOTE | 2019-10-21 11:23 | RADIOLOGY REPORT (SQ) ---
EXAM DESCRIPTION: CHEST SINGLE VIEW IMAGES COMPLETED DATE/TIME: 10/21/2019 10:39 am REASON FOR STUDY: bed 9 stroke alert COMPARISON: 09/20/2019 TECHNIQUE: Single frontal radiographic view of the chest acquired. NUMBER OF VIEWS: One view. LIMITATIONS: None. FINDINGS: LUNGS AND PLEURA: No pneumothorax. Increased opacity in the left medial lung base suggest ing airspace disease -atelectasis. No pleural effusion. MEDIASTINUM AND HILAR STRUCTURES: Stable. HEART AND VASCULAR STRUCTURES: Stable. BONES: No acute findings. HARDWARE: None in the chest. OTHER: No other significant finding. IMPRESSION: Increased opacity in the left medial lung base suggesting airspace disease -atelectasis . No pleural effusion. TECHNICAL DOCUMENTATION: JOB ID: [id number] [id number] 2010 [employer]- All Rights Reserved Reading location - IP/workstation name: [email or web address]
[2019-10-21 11:30] LABS: ALBUMIN 3.8 g/dL (3.5-5.0); ALKALINE PHOSPHATASE 59 U/L (38-126); ANION GAP 8 (5-19); ASPARTATE AMINO TRANSFERASE 14 U/L (17-59); BILIRUBIN,TOTAL 0.7 mg/dL (0.2-1.3); BLOOD UREA NITROGEN 16 mg/dL (7-20); CARBON DIOXIDE 24 mmol/L (22-30); CHLORIDE 107 mmol/L (98-107); CREATINE KINASE 32 U/L (55-170); GLUCOSE 154 mg/dL (75-110); POTASSIUM 3.9 mmol/L (3.6-5.0); TOTAL PROTEIN 7.2 g/dL (6.3-8.2)
[2019-10-21 11:46] LABS: CREATINE KINASE MB < 0.22 ng/mL (<4.55); TROPONIN I < 0.012 ng/mL
[2019-10-21 13:09] LABS: INTERNATIONAL RATION (INR) 1.62; PROTHROMBIN TIME 19.4 SEC (11.4-15.4)
[2019-10-21 13:10] LABS: PARTIAL THROMBOPLASTIN TIME 34.7 SEC (23.5-35.8)
[2019-10-21 14:25] VITALS: BP 180/84
== END 2019-10-21 14:11 | disposition left against medical advice (07) ==
LOC: ER 09:47
DX: R41.0 Disorientation, unspecified (principal); M54.9 Dorsalgia, unspecified; G89.29 Other chronic pain; F03.90 Unspecified dementia, unspecified severity, without behavioral disturbance, psychotic disturbance, mood disturbance, and anxiety; Z79.01 Long term (current) use of anticoagulants; Z88.8 Allergy status to other drugs, medicaments and biological substances; I10 Essential (primary) hypertension; E11.9 Type 2 diabetes mellitus without complications
CPT/HCPCS: 36415; 70450; 71045; 80053; 82550; 82553; 82962; 84484; 85025; 85610; 85730; 93005; 93010; 99285